=== PATIENT | female | born 1955 | race Caucasian/White ===

== ENCOUNTER 2018-10-20 13:55 | Emergency (ER) | payer OTHER ==
[~2018-10-20] VITALS: Ht 149.9 cm; Wt 77.1 kg
[2018-10-20 13:58] VITALS: Ht 149.9 cm; Wt 77.1 kg
[2018-10-20 14:58] LABS: BASOPHIL % 0.5 % (0-2); PLATELET COUNT 196 x10^3mcL (130-400); RED CELL DISTRIBUTION WIDTH 11.7 % (11.5-14.5)
[2018-10-20 15:00] LABS: CALCIUM 10.4 mg/dL (8.5-10.1); CARBON DIOXIDE 24.1 mmol/L (21-32); POTASSIUM SERUM 3.3 mmol/L (3.5-5.1)
[2018-10-20 15:04] LABS: ALBUMIN 4.3 g/dL (3.4-5.0); BILIRUBIN TOTAL 0.53 mg/dL (0.20-1.00); TOTAL PROTEIN, SERUM 7.6 g/dL (6.4-8.2)
[2018-10-20 18:05] VITALS: BP 132/72
== END 2018-10-20 18:05 | disposition short-term general hospital (02) ==
LOC: ED 13:55
DX: I60.9 Nontraumatic subarachnoid hemorrhage, unspecified (principal); R07.89 Other chest pain; R79.89 Other specified abnormal findings of blood chemistry; I10 Essential (primary) hypertension; E03.9 Hypothyroidism, unspecified; Z88.0 Allergy status to penicillin
CPT/HCPCS: J2765; Q0092